=== PATIENT | female | born 1995 | race American Indian/Alaskan Native ===

== ENCOUNTER 2019-03-19 15:39 | Emergency (ER) | payer SELFPAY ==
--- NOTE | 2019-03-19 16:03 | Event Note ---
ED Screening Note ED Screening Note: pt presents with nausea intermittent vomiting states she began having bleeding today lower abd cramping took at home test which was negative LNMP: feb 05, 2019 This initial assessment/diagnostic orders/clinical plan/treatment(s) is/are subject to change based on patients health status, clinical progression and re- assessment by fellow clinical providers in the ED. Further treatment and workup at subsequent clinical providers discretion. Patient/guardian urged not to elope from the ED as their condition may be serious if not clinically assessed and managed. Initial orders include: UA, urine preg
[2019-03-19 17:04] LABS: HCG Qualitative,Urine Positive (Negative)
[2019-03-19 17:09] LABS: Bacteria,Urine 1+ /HPF (Negative); Bilirubin,Urine NEG (Negative); Blood,Urine NEG (Negative); Color,Urine Yellow (Yellow); Mucus,Urine 3+ /HPF; Protein,Urine <15 mg/dL mg/dL (Negative); Sperm,Urine FEW /HPF (NP); Urobilinogen,Urine < 2.0 mg/dL (<2.0)
--- NOTE | 2019-03-19 18:37 | Emergency Department Report ---
<NII PINEDA - Last Filed: 03/19/19 18:48> ED N/V/D HPI - General Chief complaint: Nausea/Vomiting/Diarrhea Stated complaint: BLEEDING/VOMIT/STOMACH PAIN Time Seen by Provider: 03/19/19 16:02 Source: patient Mode of arrival: Ambulatory Limitations: No Limitations - History of Present Illness Initial comments: 24-year-old Afro-[place] female to emergency department complaining of mild to moderate vaginal bleeding. Cramped primary for adnexal region. No hematuria or dysuria. No fever, chills, sweats no chest pain palpitations no diarrhea nausea and vomiting off andon complaint: nausea, vomiting, diarrhea, abdominal pain Associated Abdominal Pain: Yes Radiation: none Severity: mild Quality: cramping Consistency: constant Improves with: none Worsens with: none Associated Symptoms: denies: myalgias, chest pain, cough, diaphoresis, loss of appetite, malaise, shortness of breath, syncope - Related Data Previous Rx's Medication Instructions Recorded Last Taken Type Promethazine [Phenergan] 25 mg PO Q6HR PRN #24 tab 03/19/19 Unknown Rx cephALEXin [Keflex] 500 mg PO Q8HR #30 cap 03/19/19 Unknown Rx Allergies Allergy/AdvReac Type Severity Reaction Status Date / Time No Known Allergies Allergy Unverified 03/19/19 15:40 ED Review of Systems Comment: All other systems reviewed and negative ED Past Medical Hx - Past Medical History Previous Medical History?: No - Surgical History Past Surgical History?: No - Social History Smoking Status: Never Smoker Substance Use Type: None - Medications Home Medications: Home Medications Medication Instructions Recorded Confirmed Last Taken Type Promethazine [Phenergan] 25 mg PO Q6HR PRN #24 tab 03/19/19 Unknown Rx cephALEXin [Keflex] 500 mg PO Q8HR #30 cap 03/19/19 Unknown Rx ED Physical Exam - General Limitations: No Limitations General appearance: alert, in no apparent distress - Head Head exam: Present: atraumatic, normocephalic - Eye Eye exam: Present: normal appearance, PERRL, EOMI Pupils: Present: normal accommodation - ENT ENT exam: Present: mucous membranes moist - Neck Neck exam: Present: normal inspection, tenderness, full ROM - Respiratory Respiratory exam: Present: normal lung sounds bilaterally. Absent: respiratory distress, wheezes, rales, chest wall tenderness, accessory muscle use - Cardiovascular Cardiovascular Exam: Present: regular rate, normal rhythm. Absent: systolic murmur, diastolic murmur, rubs, gallop - GI/Abdominal GI/Abdominal exam: Present: soft, normal bowel sounds. Absent: distended, tenderness, hypoactive bowel sounds - Extremities Exam Extremities exam: Present: normal inspection, normal capillary refill - Back Exam Back exam: Present: normal inspection - Neurological Exam Neurological exam: Present: alert, oriented X3 - Psychiatric Psychiatric exam: Present: normal affect, normal mood - Skin Skin exam: Present: warm, dry, intact, normal color. Absent: rash ED Medical Decision Making - Medical Decision Making 24 year old female presents with first trimester vaginal bleeding. Possible etiologies of the vaginal of bleeding were considered, including but not limited to: ectopic , spontanous miscarriage, gestational trophoblastic disease, implantaton bleeding, molar and fiborids. Clinically the patient looks well, no indications for transfusion and no signs or symptoms of peritonitis. An ultrasound was performed which showed XXX. Because the patient was having vaginal bleeding their RH status was determined to be XXX and RhoGAM was not given. Additional labs demonstrated: After careful consideration I believe the patient is safe to be discharged home with outpatient [facility] followup. I had an extensive disucssion with the patient about the possible etiologies of the vaginal bleeding and answered all their questions. I also provided education on care. The patient is agreeable to outpatient [employer] for a 48 hour BETA-HCG. I encouraged them to call if they have any questions and return to the ED for any worsening of symptoms. ED Disposition Clinical Impression: Threatened miscarriage, Threatened miscarriage in early , Acute urinary tract infection, Candidal vaginitis Disposition: TO HOME OR SELFCARE Is pt being admited?: No Does the pt Need Aspirin: No Condition: Stable Instructions: Threatened Miscarriage (ED), Urinary Tract Infection in Women ( ED), Vaginitis (ED) Additional Instructions: Maintain a complete pelvic rest, take medications for urinary tract infection is advised, take Tylenol as needed for pain and follow-up with Dr. Rosales the [facility] physician in 2-3 days for reevaluation. Return to the ED immediately if symptoms get worse. Prescriptions: cephALEXin [Keflex] 500 mg PO Q8HR #30 cap Promethazine [Phenergan] 25 mg PO Q6HR PRN #24 tab PRN Reason: Nausea Referrals: LILY ROSALES MD [Staff Physician] - 3-5 Days Print Language: TRINIDADIAN <KARL THOMPSON - Last Filed: 03/19/19 23:18> ED Review of Systems ROS: Stated complaint: BLEEDING/VOMIT/STOMACH PAIN Other details as noted in HPI ED Course Vital Signs 03/19/19 16:02 Temperature 97.9 F Pulse Rate 72 Respiratory 18 Rate Blood Pressure 111/72 O2 Sat by Pulse 97 Oximetry ED Medical Decision Making - Lab Data Result diagrams: 03/19/19 18:03 03/19/19 21:38 - Radiology Data Radiology results: report reviewed, image reviewed Findings [address] [address] Ultrasound Report Signed Patient: MAURIZIO MCKAY MR#: [id number] : 1995 Acct:[id number] Age/Sex: 24 / F ADM Date: 03/19/19 Loc: ED Attending Dr: Ordering Physician: MAME GARDINER Date of Service: 03/19/19 Procedure(s): US OB transvaginal Accession Number(s): [id number] cc: MAME GARDINER ULTRASOUND OBSTETRIC INDICATION / CLINICAL INFORMATION: Vaginal bleeding pain. Clinical Gestational Age (GA): 6 weeks 2 days based on last menstrual period TECHNIQUE: Transabdominal and Transvaginal. COMPARISON: None available. FINDINGS: GESTATIONAL SAC: Well-defined oval shape and intrauterine in location. YOLK SAC: No significant abnormality. EMBRYO/FETUS: No significant abnormality. Gestational age based on mean gestational sac diameter of 31 mm is 8 weeks 2 days. - [place]-Rump Length = 0.73 cm = 6 weeks, 4 day(s). - Heart Rate, beats per minute (if present) = 118 ADNEXA: Normal appearance of the right ovary. There is a anechoic cystic struct ure in the left ovary that measures 2.7 cm, consistent with a follicle or possibly corpus luteum/albicans. There is also a 1.3 x 1.4 x 0.9 cm smoothly marginated hyperechoic lesion in the right ovary, potentially a small hemorrhagic cyst. FREE FLUID: None. ADDITIONAL FINDINGS: None. IMPRESSION: 1. Single, living intrauterine with estimated sonographic age of 7 weeks, 3 day(s). Signer Name: Karl Jolley MD Signed: 03/19/2019 8:47 PM Workstation Name: [id number] Transcribed By: [employer] Dictated By: Karl Jolley MD Electronically Authenticated By: Karl Jolley MD Signed Date/Time: 03/19/192046 DD/ 42 TD/TT: - Medical Decision Making I assumed care of the patient from my colleague Mr. Corona Nysamantha CHAKRABORTY at shift change at 1900 hrs. . The patient is a nulliparous 24-year-old - [place] female who presented to the ED with vaginal bleeding and suprapubic pain. In the ED, patient is alert and oriented 3 and is not in distress. Labs were drawn and transvaginal ultrasound also ordered. [place] [address].0, and urinalysis was significant for acute urinary tract infection. Transvaginal ultrasound showed a single, living intrauterine with estimated sonographic age of 7 weeks, 3 day(s), with a heart tone of 118 bpm. In the ED, patient was also treated for UTI and for pain. On reevaluation, patient felt better and was discharged home and advised follow-up with [facility] physician in 5-7 days for reevaluation or return to the ED immediately if symptoms get worse. Patient was also advised to obtain [id number] Monistat for her candidal vaginitis. Patient was minimalist advised to maintain a complete pelvic rest until the [facility] physician evaluates her. - Differential Diagnosis Threatened miscarriage; ectopic ; ovarian cyst; UTI Critical care attestation.: If time is entered above; I have spent that time in minutes in the direct care of this critically ill patient, excluding procedure time. ED Disposition Time of Disposition: 23:18
[2019-03-19 18:54] LABS: Basophils # (Auto) 0.1 K/mm3 (0.0-0.1); Basophils % (Auto) 0.9 % (0.0-1.8); Eosinophils # (Auto) 0.1 K/mm3 (0.0-0.4); Eosinophils % (Auto) 1.1 % (0.0-4.3); Hematocrit 30.7 % (30.3-42.9); Hemoglobin 9.7 gm/dl (10.1-14.3); Lymphocytes # (Auto) 2.4 K/mm3 (1.2-5.4); Lymphocytes % (Auto) 31.6 % (13.4-35.0); Mean Corpuscular HGB Conc 32 % (30-34); Mean Corpuscular Volume 72 fl (79-97); Monocytes # (Auto) 0.7 K/mm3 (0.0-0.8); Monocytes % (Auto) 9.5 % (0.0-7.3); Platelet Count 331 K/mm3 (140-440); Red Blood Count 4.27 M/mm3 (3.65-5.03)
[2019-03-19] MEDS ORDERED: cephALEXin 500 MG CAP PO ONE (20:34)
[2019-03-19] MEDS ORDERED: ONDANSETRON 4 MG ODT TAB PO ONE (20:38)
--- NOTE | 2019-03-19 20:51 | Ultrasound Report ---
ULTRASOUND OBSTETRIC INDICATION / CLINICAL INFORMATION: Vaginal bleeding pain. Clinical Gestational Age (GA): 6 weeks 2 days based on last menstrual period TECHNIQUE: Transabdominal and Transvaginal. COMPARISON: None available. FINDINGS: GESTATIONAL SAC: Well-defined oval shape and intrauterine in location. YOLK SAC: No significant abnormality. EMBRYO/FETUS: No significant abnormality. Gestational age based on mean gestational sac diameter of 3 1 mm is 8 weeks 2 days. - [place]Rump Length = 0.73 cm = 6 weeks, 4 day(s). - Heart Rate, beats per minute (if present) = 118 ADNEXA: Normal appearance of the right ovary. There is a anechoic cystic structure in the left ovary that measures 2.7 cm, consistent with a follicle or possibly corpus luteum/albicans. There is also a 1.3 x 1.4 x 0.9 cm smoothly marginated hyperechoic lesion in the right ovary, potentially a small hem orrhagic cyst. FREE FLUID: None. ADDITIONAL FINDINGS: None. IMPRESSION: 1. Single, living intrauterine with estimated sonographic age of 7 weeks, 3 day(s). Signer Name: Steve Jolley MD Signed: 03/19/2019 8:47 PM Workstation Name: [email or web address]
--- NOTE | 2019-03-19 20:51 | Ultrasound Report ---
ULTRASOUND OBSTETRIC INDICATION / CLINICAL INFORMATION: Vaginal bleeding pain. Clinical Gestational Age (GA): 6 weeks 2 days based on last menstrual period TECHNIQUE: Transabdominal and Transvaginal. COMPARISON: None available. FINDINGS: GESTATIONAL SAC: Well-defined oval shape and intrauterine in location. YOLK SAC: No significant abnormality. EMBRYO/FETUS: No significant abnormality. Gestational age based on mean gestational sac diameter of 3 1 mm is 8 weeks 2 days. - [place]-Rump Length = 0.73 cm = 6 weeks, 4 day(s). - Heart Rate, beats per minute (if present) = 118 ADNEXA: Normal appearance of the right ovary. There is a anechoic cystic structure in the left ovary that measures 2.7 cm, consistent with a follicle or possibly corpus luteum/albicans. There is also a 1.3 x 1.4 x 0.9 cm smoothly marginated hyperechoic lesion in the right ovary, potentially a small hem orrhagic cyst. FREE FLUID: None. ADDITIONAL FINDINGS: None. IMPRESSION: 1. Single, living intrauterine with estimated sonographic age of 7 weeks, 3 day(s). Signer Name: Steve Jolley MD Signed: 03/19/2019 8:47 PM Workstation Name: [email or web address]
[2019-03-19 22:21] LABS: Alanine Aminotransferase 9 units/L (7-56); Albumin 4.2 g/dL (3.9-5); BUN/Creatinine Ratio 20; Blood Urea Nitrogen 10 mg/dL (7-17); Calcium 9.2 mg/dL (8.4-10.2); Hemolysis Index 0
[2019-03-19 23:27] VITALS: BP 114/56
== END 2019-03-19 23:22 | disposition home or self-care (01) ==
LOC: ED 15:39
DX: O20.0 Threatened abortion (principal); O23.41 Unspecified infection of urinary tract in pregnancy, first trimester; O23.591 Infection of other part of genital tract in pregnancy, first trimester; B37.3 Candidiasis of vulva and vagina; Z79.899 Other long term (current) drug therapy; Z3A.01 Less than 8 weeks gestation of pregnancy
CPT/HCPCS: 36415; 76801; 76817; 80053; 81001; 81025; 84702; 85025; 86900; 86901; 87076; 87086; 87186; Q0162